=== PATIENT | female | born 1950 | race American Indian/Alaskan Native ===

== ENCOUNTER 2016-03-14 06:17 | Day surgery (SDC) | payer MEDICARE ==
[2016-03-14] MEDS ORDERED: DIPRIVAN 10 MG/ML IV ONE (06:28)
[2016-03-14] MEDS ORDERED: ePHEDrine SULFATE ONE (06:29)
[2016-03-14] MEDS ORDERED: DILAUDID ONE ×2 (06:29→09:23)
[2016-03-14] MEDS ORDERED: XYLOCAINE MPF 2% ONE (06:29)
[2016-03-14] MEDS ORDERED: ZOFRAN ONE (06:30)
[2016-03-14] MEDS ORDERED: NACL P/F VIAL (10 ML) 10 ML ONE (06:30)
[2016-03-14] MEDS ORDERED: QUELICIN ONE (06:30)
[2016-03-14] MEDS ORDERED: DECADRON ONE (06:30)
[2016-03-14] MEDS ORDERED: ZEMURON IV ONE (06:43)
[2016-03-14] MEDS ORDERED: NACL BACTERIOSTATIC INFILTRATI ONE (06:53)
--- NOTE | 2016-03-14 06:53 | Anesthesia Day of Surgery ---
Anesthesia Day of Surgery - Day of Surgery Patient Examined: Yes Patient H&P Reviewed: Yes Patient is NPO: Yes Beta Blockers: Yes
--- NOTE | 2016-03-14 06:57 | Anesthesia Consultation ---
Anesthesia Consult and Med Hx - Airway Anesthetic Teeth Evaluation: Poor (few lower teeth), Dentures (upper) ROM Head & Neck: Adequate Mental/Hyoid Distance: Adequate Mallampati Class: Class II Intubation Access Assessment: Probably Good - Pulmonary Exam CTA: Yes - Cardiac Exam Cardiac Exam: RRR - Pre-Operative Health Status ASA Pre-Surgery Classification: ASA3 Proposed Anesthetic Plan: General - Pulmonary Hx Smoking: Yes (CIGARETTES 1/2 TO 1 PPD X 30 YRS, quit in 2007) Hx Respiratory Symptoms: No SOB: Yes (with activity) Hx Sleep Apnea: No - Cardiovascular System Hx Hypertension: Yes (FOR 10+ YRS) Hx Cardia Arrhythmia: No - Central Nervous System Hx Neuromuscular Disorder: No Hx Seizures: Yes (IN 2007 related to brain cancer. Controlled on Keppra) CVA: Yes (IN 2007 right sided weakness) Hx Psychiatric Problems: No - Gastrointestinal Hx Gastroesophageal Reflux Disease: No - Endocrine Hx Insulin Dependent Diabetes: No Hx Non-Insulin Dependent Diabetes: No Hx Thyroid Disease: No - Other Systems Hx Alcohol Use: No Hx Substance Use: No Hx Cancer: Yes (Breast, Metastatic lung cancer with mets to brain) - Additional Comments Anesthesia Medical History Comments: No prior anesthesia problems.HTN, seizures , breast cancer, metastatic lung cancer to brain, CVA, generalized weakness more on the Right side. Took Coreg.
[2016-03-14] MEDS ORDERED: PEPCID PO NR (07:00)
[2016-03-14] MEDS ORDERED: LACTATED RINGERS 1,000 ML IV SCH (07:00)
[2016-03-14] MEDS ORDERED: ANCEF/STERILE WATER 2 GM/20 ML IV ONE (07:55)
[2016-03-14] MEDS ORDERED: ANCEF/STERILE WATER 2 GM/20 ML IV NR (08:00)
[2016-03-14] MEDS ORDERED: XYLOCAINE 1% 20 mL INFILTRATI ONE (08:24)
[2016-03-14] MEDS ORDERED: NACL 0.9% IR ONE (08:25)
[2016-03-14] MEDS ORDERED: MARCAINE 0.25% INFILTRATI ONE (08:25)
--- NOTE | 2016-03-14 08:55 | Short Stay Summary ---
Short Stay Documentation Date of service: 03/14/16 - History H&P: obtained from office - Allergies and Medications Current Medications: Allergies lisinopril [From Prinivil] Allergy (Severe, Verified 12/17/12 07:18) Rash Home Medications Medication Instructions Recorded Confirmed Last Taken Type Carvedilol [Coreg] 6.25 mg PO BID 11/28/12 02/28/16 09/20/15 19:00 History Ramipril 5 mg PO DAILY 11/28/12 02/28/16 09/20/15 19:00 History Simvastatin 10 mg PO DAILY 11/28/12 02/28/16 09/20/15 19:00 History levETIRAcetam [Keppra TAB] 750 mg PO BID 11/28/12 02/28/16 09/20/15 19:00 History Brimonidine Tartrate [Alphagan P 1 drop OD BID 09/21/15 02/28/16 09/20/15 19:00 History 0.1%] Dorzolamide 2% (Nf) [Trusopt (Nf)] 1 drops OU TID 09/21/15 02/28/16 09/20/15 19: 00 History HYDROcodone/APAP 5-325 [[place] 1 each PO Q6HR PRN #10 tablet 09/21/15 02/28/16 Unknown Rx 5/325] Loratadine [Allergy Relief] 10 mg PO DAILY 09/21/15 02/28/16 09/20/15 19:00 History traMADol [Ultram] 50 mg PO Q4HR PRN 09/21/15 02/28/16 09/20/15 19:00 History HYDROcodone/APAP 5-325 [[place] 1 each PO Q6HR PRN #20 tablet 03/14/16 Unknown Rx 5/325] Active Medications Cefazolin Sodium (Ancef/Sterile Water 2 Gm/20 Ml) 2 gm IV PREOP NR Stop: 03/14/16 23:59 Lactated Ringer's (Lactated Ringers) 1,000 mls @ 75 mls/hr IV DIRECT RYLEY Last Admin: 03/14/16 07:02 Dose: 75 mls/hr - Brief post op/procedure progress note Date of procedure: 03/14/16 Pre-op diagnosis: Right port with central venous access not indicated Post-op diagnosis: same Procedure: Right port removal Anesthesia: GETA Findings: Right port removed in its entirety Surgeon: TOBIAS MALHOTRA Estimated blood loss: minimal Pathology: none Specimen disposition: discarded Condition: stable - Disposition Condition at discharge: Good Disposition: DISCHARGED TO HOME OR SELFCARE Short Stay Discharge Plan Activity: other (no heavy lifting) Diet: regular Wound: other (keep incision clean and dry and may shower in 24 hours; do not rub or scrub incision; no baths, pools or lakes) Follow up with: BETSY PRADHAN MD [Primary Care Provider] - 7 Days TOBIAS MALHOTRA MD [Staff Physician] - 7 Days Prescriptions: HYDROcodone/APAP 5-325 [[place] 5/325] 1 each PO Q6HR PRN #20 tablet PRN Reason: Pain
--- NOTE | 2016-03-14 09:02 | Post Anesthesia Evaluation ---
- Post Anesthesia Evaluation Patient Participated: Yes Airway Patent: Yes Stable Respiratory Function: Yes Nausea/Vomiting: No Temp > 96.8F: Yes Pain Manageable: Yes Adequeate Hydration: Yes Anesthesia Complications: No Block Receding Appropriately: Not Applicable Patient on Ventilator: No
--- NOTE | 2016-03-14 09:04 | Operative Report ---
Operative Report Operative Report: Date of procedure: 03/14/2016 Pre-operative diagnosis: Left breast cancer with central venous access not indicated Post-operative diagnosis: Same Procedure name(s): Right port removal Surgeon: Vibha Suresh M.D. Anesthesia: Gen. Findings: Right port removed in its entirety without incident Complications: None Disposition: PACU in good condition Indications for operative procedure: This is a 65-year-old lady with a history of left breast cancer and lung cancer with metastasis to the brain with central venous access no longer indicated. Patient wished to proceed with the above procedure. Procedure in detail: Patient was taken to operating room and was laid supine. Gen. anesthesia was administered without any complications. Right chest was prepped and draped in the normal sterile operative fashion. The port was identified. Skin incision was made at prior port incision site. The subcutaneous tissues were open with the aid of the Bovie cautery. Port catheter was identified and appropriately removed without incident and then the port with catheter attached were removed in its entirety. Hemostasis was noted. Port cavity site was anesthetized with 1% lidocaine with quarter percent Marcaine. The skin was approximated and closed with an interrupted 3-0 Vicryl followed by a running 4-0 Monocryl and skin affix. She tolerated surgery very well and was awakened from anesthesia without complications and transferred to PACU in good condition.
[2016-03-14] MEDS ORDERED: DILAUDID IV PRN (09:29)
[2016-03-14] MEDS ORDERED: APRESOLINE ONE (09:40)
--- NOTE | 2016-03-14 09:45 | Post Anesthesia Evaluation ---
- Post Anesthesia Evaluation Patient Participated: Yes Airway Patent: Yes Stable Respiratory Function: Yes Nausea/Vomiting: No Temp > 96.8F: Yes Pain Manageable: Yes Adequeate Hydration: Yes Anesthesia Complications: No
[2016-03-14 10:52] VITALS: BP 120/70
== END 2016-03-14 11:04 | disposition home or self-care (01) ==
LOC: OR 06:17
PROVIDERS: ATTEND Surgery
DX: C50.912 Malignant neoplasm of unspecified site of left female breast (principal); C79.31 Secondary malignant neoplasm of brain; I10 Essential (primary) hypertension; E78.00 Pure hypercholesterolemia, unspecified; H40.9 Unspecified glaucoma; F03.90 Unspecified dementia, unspecified severity, without behavioral disturbance, psychotic disturbance, mood disturbance, and anxiety; Z85.3 Personal history of malignant neoplasm of breast; Z87.891 Personal history of nicotine dependence; Z90.710 Acquired absence of both cervix and uterus; Z90.13 Acquired absence of bilateral breasts and nipples; Z86.73 Personal history of transient ischemic attack (TIA), and cerebral infarction without residual deficits
CPT/HCPCS: 36590; J0330; J0360; J1100; J1170; J2405; J2704; J7120; J0690

== ENCOUNTER 2017-08-05 10:08 | Outpatient (CLI) | payer MEDICARE ==
--- NOTE | 2017-08-06 05:13 | Cat Scan Report ---
FINAL REPORT EXAM: CT HEAD/BRAIN WO CON HISTORY: BREAST CANCER,LUNG CANCER BRAIN METS TECHNIQUE: CT imaging is acquired through the brain without contrast. Transaxial reformations are provided. PRIORS: CT neck 09/21/2015 FINDINGS: There is massive and disproportionate expansion of the left occipital horn best demonstrated on axial series 2, image 32. Ventricles and CSF spaces are otherwise proportionately enlarged, consistent with parenchymal atrophy. Asymmetric and abnormal subcortical hypodensity on axial series 2, image 16. Additional scattered deep and subcortical white matter hypodense foci are confluent in some areas and are compatible with microvascular angiopathy. Chronic appearing subdural collections are seen on the right greater than left overlying the cerebral convexities and/or best demonstrated at the level of the centrum semiovale on axial series 2, image 25 measuring up to 10 and 2 millimeters in thickness from the inner table of the skull, respectively. No acute intracranial hemorrhage or mass effect identified. No skull fracture. No significant abnormality within the imaged paranasal sinuses or mastoid air cells. IMPRESSION: No acute intracranial abnormality identified. Chronic and massive expansion of the left occipital horn. White matter disease may be vascular, metastatic or iatrogenic in etiology (if patient has had radiation.) Chronic subdural collections are greater on the right without significant mass effect as detailed above. Consider MRI for much more sensitive evaluation.
--- NOTE | 2017-08-06 05:25 | Cat Scan Report ---
FINAL REPORT EXAM: CT CHEST WO CON HISTORY: BREAST CANCER,LUNG CANCER BRAIN METS TECHNIQUE: CT imaging obtained through the chest without contrast. Transaxial, Coronal and sagittal reformats are provided. PRIORS: CT cervical spine 09/21/2015 FINDINGS: Mediastinum is remarkable for coronary artery disease. Thoracic aorta is normal in course and caliber. No pneumothorax or effusion. Centrilobular emphysema is present. There is linear scarring at the left lung apex greater than at the right lung base and superior segment of the right lower lung. Mild left upper lung bronchiectasis associated with region of scarring best demonstrated on axial series 2, image 47. Please see CT abdomen of the same date. The superficial soft tissues are remarkable for mastectomy. Slightly mottled appearance of the axial skeleton. No acute bony abnormality or worrisome osseous lesions identified. IMPRESSION: No acute chest findings. Pulmonary scarring and mild cylindrical/traction bronchiectasis may be secondary to prior radiation. Correlation with treatment history is requested. Slightly mottled appearance of the axial skeleton is nonspecific but most likely secondary to demineralization. Metastatic disease could appear similar. Consider follow-up PET-CT, nuclear medicine bone scan or MRI as warranted.
--- NOTE | 2017-08-06 05:42 | Cat Scan Report ---
FINAL REPORT EXAM: CT ABDOMEN PELVIS WO CON HISTORY: BREAST CANCER,LUNG CANCER BRAIN METS TECHNIQUE: CT images obtained through the Abdomen and Pelvis following ingestion of positive enteric contrast and without intravenous contrast. Transaxial,coronal and sagittal reformats are provided. PRIORS: Chest CT of the same date FINDINGS: Please see CT chest of the same date. Kidneys are normal in size, axis and position. No hydronephrosis or nephrolithiasis. The ureters are normal in course and caliber. No stones are seen within the urinary bladder. Prior hysterectomy. Low-density lesions in the right liver measuring up to 7 millimeters on axial series 2, image 10 and 12 millimeters on axial image 28 are indeterminate on this examination. Additional 11 millimeter hypodense lesion in the spleen on axial series 2, image 34 is also indeterminate. Benign-appearing left adrenal 1 centimeter nodule with internal attenuation of approximately 9 Hounsfield units. The liver, gallbladder, pancreas, spleen, and right adrenal gland is otherwise demonstrate an unremarkable noncontrast appearance. Hollow enteric organs are normal in course and caliber. Positive enteric contrast is seen as far distally as the hepatic flexure. No findings of acute appendicitis. No intra-abdominal free air/fluid or lymphadenopathy. Normal course of the mildly ectatic abdominal aorta with scattered atherosclerosis. Superficial soft tissues are remarkable for anterior abdominal wall surgical scarring. No acute or aggressive appearing skeletal findings. IMPRESSION: There are a couple of scattered hypodense lesions in the liver and spleen, which are indeterminate on this examination and may be represent benign entities or be sequela of metastatic disease. Correlation with prior imaging is requested. Consider MRI and/or nuclear medicine PET-CT as warranted.
== END 2017-08-05 10:09 | disposition home or self-care (01) ==
LOC: CT 10:08
DX: C79.31 Secondary malignant neoplasm of brain (principal); C50.919 Malignant neoplasm of unspecified site of unspecified female breast; C34.11 Malignant neoplasm of upper lobe, right bronchus or lung; K76.89 Other specified diseases of liver; J98.4 Other disorders of lung; I10 Essential (primary) hypertension; G40.909 Epilepsy, unspecified, not intractable, without status epilepticus; E78.5 Hyperlipidemia, unspecified; R41.3 Other amnesia; Z98.890 Other specified postprocedural states; Z87.891 Personal history of nicotine dependence
CPT/HCPCS: 70450; 71250; 74176

== ENCOUNTER 2017-10-26 11:42 | Emergency (ER) | payer MEDICARE ==
[2017-10-26] MEDS ORDERED: NACL 0.9% 1000 ML 1,000 ML IV ONE (13:03)
[2017-10-26 13:50] LABS: Basophils % (Auto) 0.7 % (0.0-1.8); Eosinophils % (Auto) 0.6 % (0.0-4.3); Hematocrit 37.4 % (30.3-42.9); Hemoglobin 12.5 gm/dl (10.1-14.3); Lymphocytes # (Auto) 0.8 K/mm3 (1.2-5.4); Lymphocytes % (Auto) 14.7 % (13.4-35.0); Mean Corpuscular HGB Conc 34 % (30-34); Mean Corpuscular Hemoglobin 33 pg (28-32); Mean Corpuscular Volume 98 fl (79-97); Monocytes # (Auto) 0.6 K/mm3 (0.0-0.8); Monocytes % (Auto) 10.6 % (0.0-7.3); Platelet Count 180 K/mm3 (140-440); Red Blood Count 3.81 M/mm3 (3.65-5.03)
[2017-10-26 14:01] LABS: Alanine Aminotransferase 11 units/L (7-56); Albumin 4.3 g/dL (3.9-5); BUN/Creatinine Ratio 10; Blood Urea Nitrogen 14 mg/dL (7-17); Calcium 9.9 mg/dL (8.4-10.2); Hemolysis Index 5
[2017-10-26 14:05] LABS: INR 0.91 (0.87-1.13)
[2017-10-26 14:06] LABS: Partial Thromboplastin Time 26.9 Sec. (24.2-36.6)
--- NOTE | 2017-10-26 14:36 | Emergency Department Report ---
ED General Adult HPI - General Chief complaint: Altered Mental Status Stated complaint: HEADACHES/CONFUSION Time Seen by Provider: 10/26/17 13:02 Source: patient Mode of arrival: Wheelchair Limitations: No Limitations - History of Present Illness Initial comments: 66-year-old female is brought by younger family member for evaluation of difficulty in ambulating for the last 3 days. They state that the patient had a fall and was complaining of headaches. The patient is not complaining of any headache to me. The family member reports to me that she has right-sided weakness from previous CVA largely effecting her arm. She is able to ambulate usually on her own. She has been too weak to ambulate over the last few days. She is not currently on hospice. The family member could not identify what type of cancer she had. They state that she has not had any recent treatment by her oncologist Dr. CROWDER. Per a 2017 discharge summary: Patient is a 65-year-old woman with a history of hypertension, dyslipidemia, lung cancer with left paraspinal mets, brain mets s/p Cyberknife treatment at [facility], seizure disorder, glaucoma, CVA with right-sided hemiparesis and stage IV left breast cancer status post left simple mastectomy with prophylactic right mastectomy and neoadjuvant chemotherapy. Apparently outpatient CT was obtained 08/19. Interpretation is as follows: There is massive and disproportionate expansion of the left occipital horn best demonstrated on axial series 2, image 32. Ventricles and CSF spaces are otherwise proportionately enlarged, consistent with parenchymal atrophy. Asymmetric and abnormal subcortical hypodensity on axial series 2, image 16. Additional scattered deep and subcortical white matter hypodense foci are confluent in some areas and are compatible with microvascular angiopathy. Chronic appearing subdural collections are seen on the right greater than left overlying the cerebral convexities and/or best demonstrated at the level of the centrum semiovale on axial series 2, image 25 measuring up to 10 and 2 millimeters in thickness from the inner table of the skull, respectively. No acute intracranial hemorrhage or mass effect identified. - Related Data Home Medications Medication Instructions Recorded Confirmed Last Taken Carvedilol [Coreg] 6.25 mg PO BID 11/28/12 11/12/16 1 Day Ago ~11/11/16 Simvastatin 10 mg PO DAILY 11/28/12 11/12/16 1 Day Ago ~11/11/16 levETIRAcetam [Keppra TAB] 750 mg PO BID 11/28/12 11/12/16 1 Day Ago ~11/11/16 Brimonidine Tartrate [Alphagan P 1 drop OD BID 09/21/15 11/12/16 1 Day Ago 0.1%] ~11/11/16 Dorzolamide 2% (Nf) [Trusopt] 1 drops OU TID 09/21/15 11/12/16 1 Day Ago ~11/11/16 Previous Rx's Medication Instructions Recorded Last Taken Type traMADol [Ultram 50 MG tab] 50 mg PO Q4H PRN #30 tablet 11/14/16 Unknown Rx hydrALAZINE [Apresoline TAB] 25 mg PO Q12HR #60 tablet 10/26/17 Unknown Rx Allergies Allergy/AdvReac Type Severity Reaction Status Date / Time lisinopril [From Prinivil] Allergy Severe Rash Verified 12/17/12 07:18 ED Review of Systems ROS: Stated complaint: HEADACHES/CONFUSION Other details as noted in HPI Comment: Unobtainable due to pts medical conditions ED Past Medical Hx - Past Medical History Hx Hypertension: Yes (FOR 10+ YRS) Hx Seizures: Yes (IN 2007 related to brain cancer. Controlled on Keppra) Hx Dementia: Yes Hx HIV: No - Surgical History Hx Breast Surgery: Yes (EXCISION OF LEFT BREAST CYST, RIGHT BREAST BX, LEFT BREAST BX IN 2010) Additional Surgical History: Lung, Breast, Hyst - Social History Smoking Status: Never Smoker Substance Use Type: None - Medications Home Medications: Home Medications Medication Instructions Recorded Confirmed Last Taken Type Carvedilol [Coreg] 6.25 mg PO BID 11/28/12 11/12/16 1 Day Ago History ~11/11/16 Simvastatin 10 mg PO DAILY 11/28/12 11/12/16 1 Day Ago History ~11/11/16 levETIRAcetam [Keppra TAB] 750 mg PO BID 11/28/12 11/12/16 1 Day Ago History ~11/11/16 Brimonidine Tartrate [Alphagan P 1 drop OD BID 09/21/15 11/12/16 1 Day Ago History 0.1%] ~11/11/16 Dorzolamide 2% (Nf) [Trusopt] 1 drops OU TID 09/21/15 11/12/16 1 Day Ago History ~11/11/16 traMADol [Ultram 50 MG tab] 50 mg PO Q4H PRN #30 tablet 11/14/16 Unknown Rx hydrALAZINE [Apresoline TAB] 25 mg PO Q12HR #60 tablet 10/26/17 Unknown Rx ED Physical Exam - General Limitations: Physical Limitation General appearance: other (patient is reasonably alert. She has no complaints. She is in no distress.) - Head Head exam: Present: atraumatic - Eye Eye exam: Absent: scleral icterus - ENT ENT exam: Present: normal exam - Neck Neck exam: Absent: tenderness, meningismus - Respiratory Respiratory exam: Present: normal lung sounds bilaterally. Absent: respiratory distress - Cardiovascular Cardiovascular Exam: Present: regular rate, normal rhythm. Absent: systolic murmur, diastolic murmur, rubs, gallop - GI/Abdominal GI/Abdominal exam: Present: soft, normal bowel sounds. Absent: distended, tenderness, guarding, rebound, rigid - Extremities Exam Extremities exam: Present: normal inspection, other (patient crossing legs, no distress). Absent: full ROM (contracted right arm), calf tenderness - Back Exam Back exam: Absent: CVA tenderness (R), CVA tenderness (L) - Neurological Exam Neurological exam: Present: motor sensory deficit. Absent: CN II-XII intact - Psychiatric Psychiatric exam: Present: normal affect, flat affect - Skin Skin exam: Present: warm, dry, intact, normal color. Absent: rash ED Course Vital Signs 10/26/17 10/26/17 10/26/17 12:04 12:41 12:45 Temperature 98.1 F Pulse Rate 75 66 71 Respiratory 16 16 17 Rate Blood Pressure 90/63 156/93 O2 Sat by Pulse 97 98 Oximetry 10/26/17 10/26/17 10/26/17 13:00 13:15 13:30 Temperature Pulse Rate 71 65 67 Respiratory 17 17 12 Rate Blood Pressure 132/82 142/88 151/94 O2 Sat by Pulse 97 97 97 Oximetry 10/26/17 10/26/17 10/26/17 13:45 14:00 14:16 Temperature Pulse Rate 67 63 65 Respiratory 13 20 12 Rate Blood Pressure 154/94 155/93 155/93 O2 Sat by Pulse 98 96 97 Oximetry 10/26/17 10/26/17 14:30 14:45 Temperature Pulse Rate 70 63 Respiratory 14 16 Rate Blood Pressure 162/96 186/107 O2 Sat by Pulse 99 98 Oximetry - Reevaluation(s) Reevaluation #1: Patient remains completely asymptomatic. Her blood pressure was noted to be elevated. She was given hydralazine IV. She is only taking carvedilol now. She will be placed on a low dose of hydralazine. Her heart rate is in the 60s. I discussed her disposition with family. They agreed she would be better off at home. I do not see any acute indications for hospitalization. We will check her urine results prior to discharge. 10/26/17 15:29 ED Medical Decision Making - Lab Data Result diagrams: 10/26/17 13:12 10/26/17 13:12 Laboratory Results - last 24 hr 10/26/17 10/26/17 10/26/17 13:12 13:12 13:12 WBC 5.7 RBC 3.81 Hgb 12.5 Hct 37.4 MCV 98 H MCH 33 H MCHC 34 RDW 14.0 Plt Count 180 Lymph % (Auto) 14.7 [place]anan % (Auto) 10.6 H Eos % (Auto) 0.6 Baso % (Auto) 0.7 Lymph # 0.8 L [place] # 0.6 Eos # 0.0 Baso # 0.0 Seg Neutrophils % 73.4 H Seg Neutrophils # 4.2 PT 12.7 INR 0.91 APTT 26.9 Sodium 145 Potassium 3.9 Chloride 107.3 H Carbon Dioxide 24 Anion Gap 18 BUN 14 Creatinine 1.4 H Estimated GFR 46 BUN/Creatinine Ratio 10 Glucose 108 H Lactic Acid Calcium 9.9 Total Bilirubin 0.30 AST 14 ALT 11 Alkaline Phosphatase 56 Ammonia Total Creatine Kinase 78 Troponin T < 0.010 Total Protein 6.8 Albumin 4.3 Albumin/Globulin Ratio 1.7 TSH 10/26/17 10/26/17 10/26/17 13:12 13:12 13:12 WBC RBC Hgb Hct MCV MCH MCHC RDW Plt Count Lymph % (Auto) [place] % (Auto) Eos % (Auto) Baso % (Auto) Lymph # [place] # Eos # Baso # Seg Neutrophils % Seg Neutrophils # PT INR APTT Sodium Potassium Chloride Carbon Dioxide Anion Gap BUN Creatinine Estimated GFR BUN/Creatinine Ratio Glucose Lactic Acid 1.20 Calcium Total Bilirubin AST ALT Alkaline Phosphatase Ammonia 27.0 Total Creatine Kinase Troponin T Total Protein Albumin Albumin/Globulin Ratio TSH 1.140 Laboratory Results - last 24 hr 10/26/17 10/26/17 10/26/17 13:12 13:12 13:12 WBC 5.7 RBC 3.81 Hgb 12.5 Hct 37.4 MCV 98 H MCH 33 H MCHC 34 RDW 14.0 Plt Count 180 Lymph % (Auto) 14.7 [place] % (Auto) 10.6 H Eos % (Auto) 0.6 Baso % (Auto) 0.7 Lymph # 0.8 L [place] # 0.6 Eos # 0.0 Baso # 0.0 Seg Neutrophils % 73.4 H Seg Neutrophils # 4.2 PT 12.7 INR 0.91 APTT 26.9 Sodium 145 Potassium 3.9 Chloride 107.3 H Carbon Dioxide 24 Anion Gap 18 BUN 14 Creatinine 1.4 H Estimated GFR 46 BUN/Creatinine Ratio 10 Glucose 108 H Lactic Acid Calcium 9.9 Total Bilirubin 0.30 AST 14 ALT 11 Alkaline Phosphatase 56 Ammonia Total Creatine Kinase 78 Troponin T < 0.010 Total Protein 6.8 Albumin 4.3 Albumin/Globulin Ratio 1.7 TSH 10/26/17 10/26/17 10/26/17 13:12 13:12 13:12 WBC RBC Hgb Hct MCV MCH MCHC RDW Plt Count Lymph % (Auto) [place] % (Auto) Eos % (Auto) Baso % (Auto) Lymph # [place] # Eos # Baso # Seg Neutrophils % Seg Neutrophils # PT INR APTT Sodium Potassium Chloride Carbon Dioxide Anion Gap BUN Creatinine Estimated GFR BUN/Creatinine Ratio Glucose Lactic Acid 1.20 Calcium Total Bilirubin AST ALT Alkaline Phosphatase Ammonia 27.0 Total Creatine Kinase Troponin T Total Protein Albumin Albumin/Globulin Ratio TSH 1.140 Laboratory Results - last 24 hr 10/26/17 10/26/17 10/26/17 13:12 13:12 13:12 WBC 5.7 RBC 3.81 Hgb 12.5 Hct 37.4 MCV 98 H MCH 33 H MCHC 34 RDW 14.0 Plt Count 180 Lymph % (Auto) 14.7 [place] % (Auto) 10.6 H Eos % (Auto) 0.6 Baso % (Auto) 0.7 Lymph # 0.8 L [place] # 0.6 Eos # 0.0 Baso # 0.0 Seg Neutrophils % 73.4 H Seg Neutrophils # 4.2 PT 12.7 INR 0.91 APTT 26.9 Sodium 145 Potassium 3.9 Chloride 107.3 H Carbon Dioxide 24 Anion Gap 18 BUN 14 Creatinine 1.4 H Estimated GFR 46 BUN/Creatinine Ratio 10 Glucose 108 H Lactic Acid Calcium 9.9 Total Bilirubin 0.30 AST 14 ALT 11 Alkaline Phosphatase 56 Ammonia Total Creatine Kinase 78 Troponin T < 0.010 Total Protein 6.8 Albumin 4.3 Albumin/Globulin Ratio 1.7 TSH Urine Color Urine Turbidity Urine pH Ur Specific [place] Urine Protein Urine Glucose (UA) Urine Ketones Urine Blood Urine Nitrite Urine Bilirubin Urine Urobilinogen Ur Leukocyte Esterase Urine WBC (Auto) Urine RBC (Auto) U Epithel Cells (Auto) Urine Mucus 10/26/17 10/26/17 10/26/17 13:12 13:12 13:12 WBC RBC Hgb Hct MCV MCH MCHC RDW Plt Count Lymph % (Auto) [place] % (Auto) Eos % (Auto) Baso % (Auto) Lymph # [place] # Eos # Baso # Seg Neutrophils % Seg Neutrophils # PT INR APTT Sodium Potassium Chloride Carbon Dioxide Anion Gap BUN Creatinine Estimated GFR BUN/Creatinine Ratio Glucose Lactic Acid 1.20 Calcium Total Bilirubin AST ALT Alkaline Phosphatase Ammonia 27.0 Total Creatine Kinase Troponin T Total Protein Albumin Albumin/Globulin Ratio TSH 1.140 Urine Color Urine Turbidity Urine pH Ur Specific [place] Urine Protein Urine Glucose (UA) Urine Ketones Urine Blood Urine Nitrite Urine Bilirubin Urine Urobilinogen Ur Leukocyte Esterase Urine WBC (Auto) Urine RBC (Auto) U Epithel Cells (Auto) Urine Mucus 10/26/17 15:08 WBC RBC Hgb Hct MCV MCH MCHC RDW Plt Count Lymph % (Auto) [place] % (Auto) Eos % (Auto) Baso % (Auto) Lymph # [place] # Eos # Baso # Seg Neutrophils % Seg Neutrophils # PT INR APTT Sodium Potassium Chloride Carbon Dioxide Anion Gap BUN Creatinine Estimated GFR BUN/Creatinine Ratio Glucose Lactic Acid Calcium Total Bilirubin AST ALT Alkaline Phosphatase Ammonia Total Creatine Kinase Troponin T Total Protein Albumin Albumin/Globulin Ratio TSH Urine Color Yellow Urine Turbidity Clear Urine pH 5.0 Ur Specific [place] 1.018 Urine Protein <15 mg/dl Urine Glucose (UA) Neg Urine Ketones Neg Urine Blood Neg Urine Nitrite Neg Urine Bilirubin Neg Urine Urobilinogen 2.0 Ur Leukocyte Esterase Neg Urine WBC (Auto) < 1.0 Urine RBC (Auto) 2.0 U Epithel Cells (Auto) < 1.0 Urine Mucus Few - Radiology Data Radiology results: report reviewed interpreted by me: Chronic changes involving the posterior horn of the right occipital ventricle. These are not acute. Resolution of the right subdural collection. No acute findings. Critical care attestation.: If time is entered above; I have spent that time in minutes in the direct care of this critically ill patient, excluding procedure time. ED Disposition Clinical Impression: Uncontrolled hypertension, History of cancer metastatic to brain Disposition: DC-01 TO HOME OR SELFCARE Is pt being admited?: No Does the pt Need Aspirin: No Condition: Stable Instructions: Hypertension (ED) Additional Instructions: Rx for high blood pressure. Follow with your primary care physician and oncologist. If you do not have a primary care physician I have listed the conveyor installer. Return any acute change or problem. Prescriptions: hydrALAZINE [Apresoline TAB] 25 mg PO Q12HR #60 tablet Referrals: PRIMARY CAREMD [Primary Care Provider] - 3-5 Days Time of Disposition: 15:40
--- NOTE | 2017-10-26 14:51 | XRay Report ---
FINAL REPORT PROCEDURE: XR CHEST 1V AP TECHNIQUE: Chest radiograph anteroposterior view. CPT 64852 HISTORY: Altered Mental Status COMPARISON: Prior CT scan of the chest 08/05/2017 FINDINGS: There are linear bands of increased density in the upper 3rd of the right lung medially in the in the midportion of the left lung which were seen on the prior CT scan of the chest suggesting scarring. Right diaphragm is chronically elevated. No acute infiltrates masses or effusions are identified. The heart appears to be mildly enlarged. Pulmonary vasculature is not distended. No acute bony abnormalities are seen. IMPRESSION: Parenchymal scarring. Lungs are hypoventilated. There is cardiomegaly. No acute abnormalities are suspected..
--- NOTE | 2017-10-26 15:15 | Cat Scan Report ---
FINAL REPORT PROCEDURE: CT HEAD/BRAIN WO CON TECHNIQUE: Computerized tomography of the head was performed without contrast material. HISTORY: Altered Mental Status COMPARISON: Prior CT scan of the brain 08/05/2017 FINDINGS: Extra-axial fluid collection lateral to the right frontal and right parietal lobes on the prior study have resolved. There is no evidence of intracranial hemorrhage. No parenchymal hemorrhage, mass lesions or mass effect are seen. There is dilatation of the posterior horn of the left lateral ventricle. This is unchanged from the prior study in suggest ex vacuo affect from prior ischemic change or traumatic change. The ventricles, the sulcal pattern and fissures are prominent consistent with moderate atrophy. There is patchy decreased density in the periventricular white matter without mass effect suggesting gliosis related to microvascular disease or white matter changes of aging. Small old lacunar infarcts visualized bilaterally posterior superior aspect of the basal ganglia. There is also an old lacunar infarct medial aspect right basal ganglia. There is no evidence of skull fracture. Visualized paranasal sinuses are clear. Mastoid air cells are clear. IMPRESSION: Interval resolution extra-axial fluid collection adjacent to the right frontal and right parietal lobes. No acute intracranial abnormalities are identified. There is evidence of moderate atrophy and gliosis. There is also ex vacuo affect involving the posterior horn of the left lateral ventricle suggesting previous ischemic event or traumatic event in the left parietal lobe. This is unchanged.
[2017-10-26 15:16] LABS: Bilirubin,Urine NEG (Negative); Blood,Urine NEG (Negative); Color,Urine Yellow (Yellow); Mucus,Urine FEW /HPF; Protein,Urine <15 mg/dL mg/dL (Negative); WBC,Urine < 1.0 /HPF (0.0-6.0)
[2017-10-26] MEDS ORDERED: APRESOLINE IV ONE (15:18)
[2017-10-26 16:53] VITALS: BP 160/94
== END 2017-10-26 16:56 | disposition home or self-care (01) ==
LOC: ED 11:42
DX: I10 Essential (primary) hypertension (principal); C80.1 Malignant (primary) neoplasm, unspecified; C79.31 Secondary malignant neoplasm of brain; F03.90 Unspecified dementia, unspecified severity, without behavioral disturbance, psychotic disturbance, mood disturbance, and anxiety; G40.909 Epilepsy, unspecified, not intractable, without status epilepticus; Z88.8 Allergy status to other drugs, medicaments and biological substances; Z86.73 Personal history of transient ischemic attack (TIA), and cerebral infarction without residual deficits
CPT/HCPCS: 36415; 70450; 71045; 80053; 81001; 82140; 82550; 84443; 84484; 85025; 85610; 85730; 86850; 86900; 86901; 87040; 93005; 93010; 96374; 99284; J0360; J7030; 96361

== ENCOUNTER 2018-06-12 13:01 | Outpatient (CLI) | payer MEDICARE ==
--- NOTE | 2018-06-16 10:38 | PET Report ---
PET/CT:06/12/18 13:01:00 CLINICAL: Breast and lung cancer restaging. RADIOPHARMACEUTICAL: 13.10mCi F18-FDG. COMPARISON: 08/18/15 PET/CT TECHNIQUE- Following intravenous injection of F-18 FDG and an approximately 60 minute uptake period, CT and PET images from the mid skull to the upper thighs were acquired with the patient in the fasted state. No contrast was administered. The CT protocol used for this PET CT study is designed for attenuation correction and anatomic localization of PET abnormalities. This fish bin tender CT is not desired to produce and cannot replace, [id number] diagnostic CT scans with specific imaging protocols for different body parts and indications. Plasma glucose at the time of this test: 108g/dl. The standardized uptake values (SUV) are normalized to patient body weight and indicate the highest activity concentration (SUV max) in a given disease site. FINDINGS: Brain--Physiologic FDG uptake in the visualized regions of the brain. Enlargement of the left occipital horn of the left lateral ventricle is unchanged compared to a 02/04/18 MRI brain. Neck--Physiologic FDG uptake in mucosal structures. Benign uptake in the musculature of the left neck Chest--Physiologic FDG uptake in mediastinal blood pool and myocardium. Status post bilateral mastectomy. Lungs--No abnormal uptake. No pulmonary nodule or mass. Status post right upper lobectomy. Pleura/pericardium--No abnormal uptake. Thoracic nodes--No abnormal uptake. Stable calcified right hilar and mediastinal lymph nodes. Hepatobiliary--No abnormal uptake. Liver background SUV mean, as a reference for comparing FDG studies, is 3.5 compared to 7 on the last exam. No liver mass. Spleen--No abnormal uptake. Pancreas--No abnormal uptake. Adrenal Glands--No abnormal uptake. Kidneys/Ureters/Bladder--No abnormal uptake. Abdominopelvic Nodes--No abnormal uptake. Bowel/Peritoneum/Mesentery--No abnormal uptake. Pelvic organs--No abnormal uptake. Bones/Soft Tissues--No abnormal uptake and no suspicious bone lesion. IMPRESSION- Negative study with no evidence of disease recurrence or metastasis.
== END 2018-06-12 13:02 | disposition home or self-care (01) ==
LOC: PET 13:01
PROVIDERS: ATTEND Internal Medicine Hematology & Oncology
DX: C79.51 Secondary malignant neoplasm of bone (principal); C50.919 Malignant neoplasm of unspecified site of unspecified female breast; C34.90 Malignant neoplasm of unspecified part of unspecified bronchus or lung; E78.5 Hyperlipidemia, unspecified; I10 Essential (primary) hypertension; E78.00 Pure hypercholesterolemia, unspecified; Z90.710 Acquired absence of both cervix and uterus; Z87.891 Personal history of nicotine dependence
CPT/HCPCS: 78815; 82962; A9552

== ENCOUNTER 2018-08-02 19:46 | Emergency (ER) | payer MEDICARE ==
--- NOTE | 2018-08-02 19:59 | Emergency Department Report ---
Blank Doc - Documentation Documentation: 67 y o female with hx of stroke 2007 with no deficit hx of brain Cancer followed by Dr Goodson family memmber brings her in states that she isnt acting her normal self started 3 days ago able to eat normally had head scan,chest scan, family memeber states she has some visual hallucinations LAbs Main side eval
[2018-08-02 20:29] LABS: Basophils # (Auto) 0.1 K/mm3 (0.0-0.1); Eosinophils % (Auto) 0.8 % (0.0-4.3); Lymphocytes # (Auto) 1.4 K/mm3 (1.2-5.4); Lymphocytes % (Auto) 24.7 % (13.4-35.0); Mean Corpuscular HGB Conc 34 % (30-34); Mean Corpuscular Volume 97 fl (79-97); Monocytes # (Auto) 0.5 K/mm3 (0.0-0.8); Platelet Count 202 K/mm3 (140-440); Red Blood Count 3.93 M/mm3 (3.65-5.03); Red Cell Distribution Width 13.8 % (13.2-15.2)
[2018-08-02 20:33] LABS: INR 0.96 (0.87-1.13)
[2018-08-02 20:34] LABS: Partial Thromboplastin Time 27.3 Sec. (24.2-36.6)
[2018-08-02 20:42] LABS: Albumin 4.6 g/dL (3.9-5); Calcium 10.2 mg/dL (8.4-10.2)
--- NOTE | 2018-08-02 21:11 | Emergency Department Report ---
ED Altered Mental Status HPI - General Chief Complaint: Altered Mental Status Stated Complaint: SLURRING SPEACH, DISORIENTATED Time Seen by Provider: 08/02/18 19:55 Source: patient, family, old records reviewed (patient had recent MRI and MRA Brain during workup during admission for alteration in mental status in February. Episode was thought to be due to possible seizure. Patient also was hallucinating while on tramadol. 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 At her baseline patient knows her name, year, place, and names of family members. Currently patient is only oriented to self. No complaints of pain, fever, or new focal neurologic deficit. Patient has good intake. Family also expresses concerned that she has not had a good bowel movement in 1 month. They deny that patient is on any newly prescribed medication. She is now on tramadol (which apparently produced hallucinations in the past as per medical records).Her brain cancer doctor: Dr. Boogie - Related Data Home Medications Medication Instructions Recorded Confirmed Last Taken levETIRAcetam [Keppra TAB] 1,000 mg PO BID 11/28/12 08/02/18 1 Day Ago ~11/11/16 Brimonidine Tartrate [Alphagan P 1 drop OU BID 09/21/15 08/02/18 1 Day Ago 0.1%] ~11/11/16 Dorzolamide 2% (Nf) [Trusopt] 1 drops OU BID 09/21/15 08/02/18 1 Day Ago ~11/11/16 Carvedilol [Coreg] 12.5 mg PO BID 02/03/18 08/02/18 Unknown Simvastatin [Zocor] 40 mg PO QPM 02/03/18 08/02/18 Unknown Latanoprost 0.005% [Xalatan 0.005%] 1 drop OU QPM 08/02/18 08/02/18 Unknown Allergies Allergy/AdvReac Type Severity Reaction Status Date / Time lisinopril [From ivil] Allergy Severe Rash Verified 08/02/18 19:55 ED Review of Systems ROS: Stated complaint: SLURRING SPEACH, DISORIENTATED Other details as noted in HPI Comment: All other systems reviewed and negative ED Past Medical Hx - Past Medical History Previous Medical History?: Yes Hx Hypertension: Yes (FOR 10+ YRS) Hx CVA: Yes (2007) Hx Seizures: Yes (IN 2007 related to brain cancer. Controlled on Keppra) Hx Dementia: Yes Hx HIV: No - Surgical History Past Surgical History?: Yes Hx Breast Surgery: Yes (EXCISION OF LEFT BREAST CYST, RIGHT BREAST BX, LEFT BREAST BX IN 2010) Additional Surgical History: Lung, Breast, Hyst - Social History Smoking Status: Never Smoker Substance Use Type: None - Medications Home Medications: Home Medications Medication Instructions Recorded Confirmed Last Taken Type levETIRAcetam [Keppra TAB] 1,000 mg PO BID 11/28/12 08/02/18 1 Day Ago History ~11/11/16 Brimonidine Tartrate [Alphagan P 1 drop OU BID 09/21/15 08/02/18 1 Day Ago History 0.1%] ~11/11/16 Dorzolamide 2% (Nf) [Trusopt] 1 drops OU BID 09/21/15 08/02/18 1 Day Ago History ~11/11/16 Carvedilol [Coreg] 12.5 mg PO BID 02/03/18 08/02/18 Unknown History Simvastatin [Zocor] 40 mg PO QPM 02/03/18 08/02/18 Unknown History Latanoprost 0.005% [Xalatan 0.005%] 1 drop OU QPM 08/02/18 08/02/18 Unknown History ED Physical Exam - General Limitations: Altered Mental Status - Other Other exam information: General: No limitations, patient is alert in no acute distress Head exam: Atraumatic, normocephalic Eyes exam: Normal appearance, pupils equal reactive to light, extraocular movements intact ENT: Moist mucous membrane, normal oropharynx Neck exam: Normal inspection, full range of motion, no meningismus nontender Respiratory exam: Clear to auscultation bilateral, no wheezes, rales, crackles Cardiovascular: Normal rate and rhythm, normal heart sounds Abdomen: Soft, nondistended, and nontender, with normal bowel sounds, no rebound, or guarding. Midline lower abdominal scar Extremity: Full range of motion normal inspection no deformity Back: Normal Inspection, full range of motion, no tenderness Neurologic: Psychiatric: normal affect, normal mood Skin: Warm, dry, intact ED Course Vital Signs 08/02/18 08/02/18 08/02/18 19:53 19:55 20:50 Temperature 98.0 F 98 F 98.7 F Pulse Rate 73 73 65 Respiratory 18 16 14 Rate Blood Pressure 153/93 153/93 Blood Pressure 153/93 188/102 [Left] O2 Sat by Pulse 94 96 97 Oximetry 08/02/18 08/02/18 08/02/18 21:00 21:38 22:00 Temperature Pulse Rate 62 64 67 Respiratory 11 L 14 Rate Blood Pressure 173/95 162/99 172/99 Blood Pressure [Left] O2 Sat by Pulse 100 Oximetry 08/02/18 08/02/18 08/03/18 22:31 23:00 00:08 Temperature Pulse Rate 66 68 73 Respiratory 14 13 16 Rate Blood Pressure 180/84 179/101 Blood Pressure 155/105 [Left] O2 Sat by Pulse 96 Oximetry 08/03/18 08/03/18 08/03/18 01:25 02:30 04:00 Temperature Pulse Rate 78 74 72 Respiratory 16 18 14 Rate Blood Pressure Blood Pressure 172/106 166/99 177/104 [Left] O2 Sat by Pulse 99 96 97 Oximetry - Lab Data Result diagrams: 08/02/18 20:13 08/02/18 20:13 Lab Results 08/02/18 08/02/18 08/02/18 Range/Units 20:13 20:13 20:13 WBC 5.8 (4.5-11.0) K/mm3 RBC 3.93 (3.65-5.03) M/mm3 Hgb 13.0 (10.1-14.3) gm/dl Hct 38.0 (30.3-42.9) % MCV 97 (79-97) fl MCH 33 H (28-32) pg MCHC 34 (30-34) % RDW 13.8 (13.2-15.2) % Plt Count 202 (140-440) K/mm3 Lymph % (Auto) 24.7 (13.4-35.0) % [place] % (Auto) 8.0 H (0.0-7.3) % Eos % (Auto) 0.8 (0.0-4.3) % Baso % (Auto) Hot Stamp Operator Lymph # 1.4 (1.2-5.4) K/mm3 Hyde # 0.5 (0.0-0.8) K/mm3 Eos # 0.0 (0.0-0.4) K/mm3 Baso # 0.1 (0.0-0.1) K/mm3 Seg Neutrophils % 65.5 (40.0-70.0) % Seg Neutrophils # 3.8 (1.8-7.7) K/mm3 PT 13.4 (12.2-14.9) Sec. INR 0.96 (0.87-1.13) APTT 27.3 (24.2-36.6) Sec. Sodium 143 (137-145) mmol/L Potassium 3.8 (3.6-5.0) mmol/L Chloride 104.2 (98-107) mmol/L Carbon Dioxide 26 (22-30) mmol/L Anion Gap 17 mmol/L BUN 11 (7-17) mg/dL Creatinine 1.2 (0.7-1.2) mg/dL Estimated GFR 54 ml/min BUN/Creatinine Ratio 9 % Glucose 110 H (65-100) mg/dL Lactic Acid (0.7-2.0) mmol/L Calcium 10.2 (8.4-10.2) mg/dL Total Bilirubin 0.50 (0.1-1.2) mg/dL AST 13 (5-40) units/L ALT 15 (7-56) units/L Alkaline Phosphatase 61 (35-129) units/L Total Protein 7.4 (6.3-8.2) g/dL Albumin 4.6 (3.9-5) g/dL Albumin/Globulin Ratio 1.6 % Urine Color (Yellow) Urine Turbidity (Clear) Urine pH (5.0-7.0) Ur Specific [place] (1.003-1.030) Urine Protein (Negative) mg/dL Urine Glucose (UA) (Negative) mg/dL Urine Ketones (Negative) mg/dL Urine Blood (Negative) Urine Nitrite (Negative) Urine Bilirubin (Negative) Urine Urobilinogen (<2.0) mg/dL Ur Leukocyte Esterase (Negative) Urine WBC (Auto) (0.0-6.0) /HPF Urine RBC (Auto) (0.0-6.0) /HPF U Epithel Cells (Auto) (0-13.0) /HPF Urine Mucus /HPF 08/02/18 08/02/18 Range/Units 20:13 21:10 WBC (4.5-11.0) K/mm3 RBC (3.65-5.03) M/mm3 Hgb (10.1-14.3) gm/dl Hct (30.3-42.9) % MCV (79-97) fl MCH (28-32) pg MCHC (30-34) % RDW (13.2-15.2) % Plt Count (140-440) K/mm3 Lymph % (Auto) (13.4-35.0) % [place] % (Auto) (0.0-7.3) % Eos % (Auto) (0.0-4.3) % Baso % (Auto) Lymph # (1.2-5.4) K/mm3 [place] # (0.0-0.8) K/mm3 Eos # (0.0-0.4) K/mm3 Baso # (0.0-0.1) K/mm3 Seg Neutrophils % (40.0-70.0) % Seg Neutrophils # (1.8-7.7) K/mm3 PT (12.2-14.9) Sec. INR (0.87-1.13) APTT (24.2-36.6) Sec. Sodium (137-145) mmol/L Potassium (3.6-5.0) mmol/L Chloride (98-107) mmol/L Carbon Dioxide (22-30) mmol/L Anion Gap mmol/L BUN (7-17) mg/dL Creatinine (0.7-1.2) mg/dL Estimated GFR ml/min BUN/Creatinine Ratio % Glucose (65-100) mg/dL Lactic Acid 1.30 (0.7-2.0) mmol/L Calcium (8.4-10.2) mg/dL Total Bilirubin (0.1-1.2) mg/dL AST (5-40) units/L ALT (7-56) units/L Alkaline Phosphatase (35-129) units/L Total Protein (6.3-8.2) g/dL Albumin (3.9-5) g/dL Albumin/Globulin Ratio % Urine Color Yellow (Yellow) Urine Turbidity Slightly-cloudy (Clear) Urine pH 5.0 (5.0-7.0) Ur Specific [place] 1.026 (1.003-1.030) Urine Protein <15 mg/dl (Negative) mg/dL Urine Glucose (UA) Neg (Negative) mg/dL Urine Ketones Neg (Negative) mg/dL Urine Blood Neg (Negative) Urine Nitrite Neg (Negative) Urine Bilirubin Neg (Negative) Urine Urobilinogen 4.0 (<2.0) mg/dL Ur Leukocyte Esterase Neg (Negative) Urine WBC (Auto) 3.0 (0.0-6.0) /HPF Urine RBC (Auto) 2.0 (0.0-6.0) /HPF U Epithel Cells (Auto) < 1.0 (0-13.0) /HPF Urine Mucus Few /HPF - EKG Data -: EKG Interpreted by Me (RBBB, LVH) EKG shows normal: sinus rhythm, ST-T waves (no stemi) Rate: normal (66) When compared to previous EKG there are: no significant change - Radiology Data Radiology results: report reviewed PROCEDURE: CT HEAD/BRAIN WO CON TECHNIQUE: Computerized tomography of the head was performed without contrast material. CT DOSE LENGTH PRODUCT: 1167.7 mGycm HISTORY: ams COMPARISONS: MRI of the brain examination of 02/04/2015. . FINDINGS: Skull and scalp: Normal . Paranasal sinuses: Mucous retention cyst versus polyp seen in the right maxillary sinus. Ventricles and subarachnoid spaces: Normal . Cerebrum: No evidence of acute hemorrhage, acute infarction or mass . Stable dilatation of the occipital horn of the left lateral ventricle. Stable chronic subdural hemorrhage seen along the left frontal lobe. Cerebellum and brainstem: No evidence of hemorrhage, acute infarction or mass . Vasculature: Normal . Other: None . IMPRESSION: No evidence of acute hemorrhage, acute infarction or mass . - Medical Decision Making Patient does not have any slurred speech or neurologic deficits. Family member states that her concerns are that she is hallucinating and more confused than normal. I have not found any medical/organic cause of the symptoms. Patient also had a recent neurologic workup including MRI/MRA this past February that was unremarkable for acute findings. Case was discussed with mental health and our goal is to have her evaluated by psychiatry. We will attempt to admit her to the upstairs inpatient [facility]. Unfortunately, the nurse to approve this admission is not available to the a.m. in Meantime I have written for patient to continue her home medications which she has brought to the ED. - Differential Diagnosis encephalopathy, intracranial mass, ICH, CVA, infection Critical Care Time: No Critical care attestation.: If time is entered above; I have spent that time in minutes in the direct care of this critically ill patient, excluding procedure time. ED Disposition Clinical Impression: Psychosis, Dementia Disposition: DC/TX-65 PSY HOSP/PSY UNIT Is pt being admited?: No Condition: Stable Time of Disposition: 05:00 (awaiting acceptanc to psych unit)
[2018-08-02 21:33] LABS: Bilirubin,Urine NEG (Negative); Blood,Urine NEG (Negative); Color,Urine Yellow (Yellow); Mucus,Urine FEW /HPF; Protein,Urine <15 mg/dL mg/dL (Negative)
--- NOTE | 2018-08-02 21:52 | Cat Scan Report ---
PROCEDURE: CT HEAD/BRAIN WO CON TECHNIQUE: Computerized tomography of the head was performed without contrast material. CT DOSE LENGTH PRODUCT: 1167.7 mGycm HISTORY: ams COMPARISONS: MRI of the brain examination of 02/04/2015. . FINDINGS: Skull and scalp: Normal . Paranasal sinuses: Mucous retention cyst versus polyp seen in the right maxillary sinus. Ventricles and subarachnoid spaces: Normal . Cerebrum: No evidence of acute hemorrhage, acute infarction or mass . Stable dilatation of the occip ital horn of the left lateral ventricle. Stable chronic subdural hemorrhage seen along the left front al lobe. Cerebellum and brainstem: No evidence of hemorrhage, acute infarction or mass . Vasculature: Normal . Other: None . IMPRESSION: No evidence of acute hemorrhage, acute infarction or mass . Stable dilatation of the occipital horn of the left lateral ventricle. Stable chronic subdural hemorr meenu seen along the left frontal lobe. This document is electronically signed by Raquel Watkins MD., August 02 2018 10:50:36 PM ET
--- NOTE | 2018-08-02 21:55 | XRay Report ---
PROCEDURE: XR ABDOMEN 1V AP TECHNIQUE: Abdominal radiograph, single view. HISTORY: ams, decreased bowel movements COMPARISONS: None . FINDINGS: Bowel gas pattern: There is moderate stool in the colon. There is no fecal impaction or obstruction. There is no bowel wall thickening. . Masses or calcifications: None . Bony structures: No significant abnormality . Other: There is no pneumoperitoneum. . IMPRESSION: There is moderate stool in the colon. There is no fecal impaction or obstruction. There is no bowel w all thickening. . There is no pneumoperitoneum. This document is electronically signed by Abelino Back MD., August 02 2018 10:53:21 PM ET
[2018-08-03] MEDS ORDERED: NON-FORMULARY (Brimonidine Tartrate [Alphagan P 0.1%] 1 DROP) OU SCH (10:00)
[2018-08-03] MEDS ORDERED: KEPPRA PO SCH (10:00)
[2018-08-03] MEDS ORDERED: NON-FORMULARY (Dorzolamide 2% (Nf) 1 DROPS) OU SCH (10:00)
[2018-08-03] MEDS ORDERED: COREG PO SCH (10:00)
[2018-08-03 14:16] VITALS: BP 143/98
[2018-08-03] MEDS ORDERED: LATANOPROST 0.005% OU SCH (18:00)
[2018-08-03] MEDS ORDERED: PRAVACHOL PO SCH (22:00)
== END 2018-08-03 14:18 ==
LOC: ED 19:46
DX: F23 Brief psychotic disorder (principal); F03.90 Unspecified dementia, unspecified severity, without behavioral disturbance, psychotic disturbance, mood disturbance, and anxiety; I10 Essential (primary) hypertension; C71.9 Malignant neoplasm of brain, unspecified; Z88.5 Allergy status to narcotic agent; Z92.3 Personal history of irradiation; Z86.73 Personal history of transient ischemic attack (TIA), and cerebral infarction without residual deficits; Z79.899 Other long term (current) drug therapy; Z99.3 Dependence on wheelchair; Z98.890 Other specified postprocedural states; Z88.8 Allergy status to other drugs, medicaments and biological substances
CPT/HCPCS: 36415; 70450; 74018; 80053; 81001; 82140; 85025; 85610; 85730; 93005; 93010; 99285; A9270-GY